=== PATIENT | female | born 1995 | race Caucasian/White ===

== ENCOUNTER → 2024-01-08 16:39 | Outpatient (REF) | payer BC, SELFPAY | LOC: PNTC 16:39 | PROVIDERS: ATTENDING PHYSICIAN Obstetrics & Gynecology | DX: Z36.0 Encounter for antenatal screening for chromosomal anomalies (principal); Z36.82 Encounter for antenatal screening for nuchal translucency | CPT/HCPCS: 76801; 76813 ==

== ENCOUNTER 2024-07-06 12:50 | Inpatient (IN) | payer BC, SELFPAY ==
[2024-07-06 12:58] VITALS: BP 129/62; BMI 34.0
[2024-07-06] MEDS: LR 1000 IV ×2 (13:00→14:14)
[2024-07-06 13:42] LABS: Hematocrit 32.4 % (37.0-47.0); Hemoglobin 11.5 g/dL (12.0-16.0); Mean Corp Hgb Conc. 35.5 g/dL (33.0-37.0); Mean Corpuscular Hgb 31.9 pg (27.0-31.0); Mean Corpuscular Volume 89.8 fL (81.0-99.0); Mean Platelet Volume 11.9 fL (7.4-10.4); Platelet Count 220 10^3/uL (130-400); Red Blood Cell Count 3.61 10^6/uL (4.20-5.40); Red Cell Dist. Width 12.6 % (11.5-14.5); White Blood Cell Count 12.5 10^3/uL (4.8-10.8)
[2024-07-06 13:55] LABS: ALT (SGPT) 96 U/L (0-35); AST (SGOT) 74 U/L (14-36); Albumin 3.5 g/dl (3.5-5.0); Alkaline Phosphatase 336 U/L (38-126); Blood Urea Nitrogen 9 mg/dl (7-17); Calcium 8.8 mg/dl (8.4-10.2); Carbon Dioxide 17 mmol/L (22-30); Chloride 104 mmol/L (98-107); Estimated Creatinine Clearance > 125 ml/min; Glucose 72 mg/dl (70-99); Sodium 134 mmol/L (135-145); Total Bilirubin 0.6 mg/dl (0.2-1.3); Total Protein 6.3 g/dl (6.3-8.2); eGFR > 60.00
[2024-07-06] MEDS: TYLENOL 1000 MG PO (14:14)
[2024-07-06] MEDS: BICITRA 30 ML PO (14:14)
[2024-07-06] MEDS: ANCEF 10 IV (14:15)
[2024-07-06] MEDS: TORADOL 15 MG IV ×2 (16:13→22:08)
[2024-07-06] MEDS: PITOCIN 30 UNITS/NSS 500 ML IV (17:12)
[2024-07-06] MEDS: BENADRYL 25 MG IV ×2 (17:13→22:08)
[2024-07-06] MEDS: FEOSOL 325 MG PO (22:08)
[2024-07-07] MEDS: TORADOL 15 MG IV ×2 (04:00→10:26)
[2024-07-07] MEDS: BENADRYL 25 MG PO (04:15)
[2024-07-07] MEDS: SYNTHROID 75 MCG PO (05:32)
[2024-07-07 05:58] LABS: Hematocrit 28.5 % (37.0-47.0); Mean Corp Hgb Conc. 35.1 g/dL (33.0-37.0); Mean Corpuscular Hgb 32.1 pg (27.0-31.0); Mean Corpuscular Volume 91.3 fL (81.0-99.0); Mean Platelet Volume 11.6 fL (7.4-10.4); Platelet Count 155 10^3/uL (130-400); Red Blood Cell Count 3.12 10^6/uL (4.20-5.40); Red Cell Dist. Width 12.6 % (11.5-14.5); White Blood Cell Count 12.3 10^3/uL (4.8-10.8)
[2024-07-07] MEDS: SENOKOT-S 1 TABLET PO (07:51)
[2024-07-07] MEDS: PRENATAL PLUS 1 TABLET PO (07:52)
--- NOTE | 2024-07-07 10:02 | W.PN.ANS.POP ---
Anesthesia Post Operative
- Anesthesia Post Op Note
Vital Signs Stable-See Nursing Note: Yes
Airway Patent: Yes
Adequate Pain Control: Yes
Change in Mental Status: No
Current Postoperative Nausea & Vomiting: No
Anesthesia Complications: No
General Anesthetic Recall: No
Unplanned Admission: No
Post Op Hydration Adequate: Yes
[2024-07-07 12:38] LABS: Syphilis/T. pallidum Ab Reflex Negative (Negative)
[2024-07-07] MEDS: MOTRIN 600 MG PO ×2 (16:07→22:07)
[2024-07-07] MEDS: TYLENOL 650 MG PO ×2 (16:11→20:37)
[2024-07-07] MEDS: ATARAX 25 MG PO (18:08)
[2024-07-07] MEDS: FEOSOL 325 MG PO (22:06)
[2024-07-08] MEDS: MOTRIN 600 MG PO ×3 (04:10→18:06)
[2024-07-08] MEDS: TYLENOL 650 MG PO ×3 (04:11→18:06)
[2024-07-08] MEDS: MYLICON 80 MG PO ×2 (04:19→15:29)
[2024-07-08] MEDS: SYNTHROID 75 MCG PO (06:25)
[2024-07-08] MEDS: SENOKOT-S 1 TABLET PO (09:04)
[2024-07-08] MEDS: PRENATAL PLUS 1 TABLET PO (09:04)
[2024-07-08 14:50] LABS: ALT (SGPT) 56 U/L (0-35); AST (SGOT) 47 U/L (14-36); Albumin 3.1 g/dl (3.5-5.0); Alkaline Phosphatase 276 U/L (38-126); Direct Bilirubin 0.1 mg/dl (0.0-0.4); Total Bilirubin 0.2 mg/dl (0.2-1.3); Total Protein 5.8 g/dl (6.3-8.2)
[2024-07-08] MEDS: FEOSOL 325 MG PO (22:15)
[2024-07-09] MEDS: TYLENOL 650 MG PO ×2 (00:18→06:19)
[2024-07-09] MEDS: MOTRIN 600 MG PO ×2 (00:18→06:19)
[2024-07-09] MEDS: SYNTHROID 75 MCG PO (06:15)
[2024-07-09] MEDS: PRENATAL PLUS PO (11:23)
--- NOTE | 2024-07-09 13:59 | W.DS.TRANS ---
DC Summary - [employer]
-
Discharge Instructions:
Discharge Diagnosis/Procedures section
Instructions:
Stand-Alone Forms: LDRP Delivery
Changes to Home Medications: No
Discharge Medications:
DC Medications w/original date entered in [facility]
iron, carbonyl 45 mg tablet (Feosol) 45 mg PO HS Supplement 07/06/24
levothyroxine 75 mcg tablet 75 mcg PO DAILY Thyroid 07/06/24
vitamin-ferrous fumarate 28 mg iron-folic acid 800 mcg tablet ( Tablet) 1 tab PO DAILY Supplement 07/06/24
acetaminophen 325 mg tablet 650 mg (2 x 325 mg) PO Q4HPRN PRN mild pain #0 tabs 07/09/24
calcium carbonate (Calcium Antacid) 400 mg (2 x 200 mg calcium (500 mg)) PO Q6HPRN PRN indigestion #0 tabs 07/09/24
ibuprofen 600 mg tablet 600 mg PO Q6HPRN PRN cramps #40 tabs 07/09/24
sennosides 8.6 mg-docusate sodium 50 mg tablet 1 tab PO DAILYPRN PRN constipation #0 tabs 07/09/24
simethicone 80 mg chewable tablet 80 mg PO TIDPRN PRN flatulence #0 tabs 07/09/24
Home Medication Changes
Pending Results: No
Total time spent discharging patient (in min): 20
== END 2024-07-09 11:30 | disposition home or self-care (01) | DRG 787 ==
LOC: LDRP 12:50
PROVIDERS: Obstetrics & Gynecology; ADMITTING PHYSICIAN Obstetrics & Gynecology
PROC: 10D00Z1 Extraction of Products of Conception, Low, Open Approach (ICD-10-PCS; 2024-07-06)
DX: O32.1XX0 Maternal care for breech presentation, not applicable or unspecified (principal); O26.643 Intrahepatic cholestasis of pregnancy, third trimester; Z3A.38 38 weeks gestation of pregnancy; Z37.0 Single live birth; E03.9 Hypothyroidism, unspecified; O99.284 Endocrine, nutritional and metabolic diseases complicating childbirth
CPT/HCPCS: 88307; 36415; 80053; 80076; 85027; 86780; 86850; 86900; 86901

== ENCOUNTER → 2025-07-27 06:44 | Outpatient (REF) | payer BC, SELFPAY | LOC: RAD 06:44 | PROVIDERS: ATTENDING PHYSICIAN Family Medicine | DX: R74.8 Abnormal levels of other serum enzymes (principal) | CPT/HCPCS: 76700 ==